=== PATIENT | female | born 1950 | race Caucasian/White ===

== ENCOUNTER 2021-07-30 07:21 | Inpatient (IN) | payer MEDICARE, MEDICAID ==
[~2021-07-30] VITALS: Ht 162.6 cm; Wt 83.6 kg
[2021-07-30] MEDS ORDERED: SODIUM CHLORIDE 0.9% 100 ML ONE (07:31)
[2021-07-30] MEDS ORDERED: IOHEXOL 350 MG/ML 150 ML VIAL ONE (07:31)
[2021-07-30 07:56] LABS: BASOPHILS % (AUTO) 1.1 % (0.0-2.0); EOSINOPHILS % (AUTO) 2.4 % (1.0-6.0); HEMATOCRIT 35.8 % (36-46); HEMOGLOBIN 12.2 g/dL (12.0-16.0); LYMPHOCYTES # (AUTO) 2.4 K/uL (1.0-4.8); LYMPHOCYTES % (AUTO) 26.2 % (22.0-44.0); MEAN CORPUSCULAR HEMOGLOBIN 31.6 pg (26.0-34.0); MEAN CORPUSCULAR HGB CONC 34.1 G/dL (31.0-37.0); MEAN CORPUSCULAR VOLUME 93 fL (80-100); MONOCYTES # (AUTO) 1.3 K/uL (0.1-1.0); NEUTROPHILS # (AUTO) 5.2 K/uL (1.8-7.7); NEUTROPHILS % (AUTO) 56.3 % (40.0-70.0); PLATELET COUNT (AUTO) 312 K/uL (150-450); RED BLOOD CELL COUNT(AUTO) 3.86 MIL/uL (4.00-5.20); RED CELL DISTRIBUTION WIDTH 13.2 % (11.5-14.5)
[2021-07-30 08:07] LABS: ANION GAP 10 mmol/L (8-16); CARBON DIOXIDE 27 mmol/L (22-29); CHLORIDE 103 mmol/L (98-107); CREATININE 0.56 mg/dL (0.60-1.30); GLUCOSE,RANDOM 90 mg/dL (70-110); POTASSIUM 3.6 mmol/L (3.5-5.1); SODIUM SERUM 140 mmol/L (136-145); UREA NITROGEN, BLOOD 10 mg/dL (7-18)
[2021-07-30 08:09] LABS: PROTHROMBIN TIME 10.9 SEC (9.4-11.6)
[2021-07-30 08:13] LABS: ALANINE AMINOTRANSFERASE 34 U/L (12-78); ALBUMIN 2.6 g/dL (3.4-5.0); ALKALINE PHOSPHATASE 103 U/L (46-116); ASPARTATE AMINOTRANSFERASE 23 U/L (15-37); BILIRUBIN,TOTAL 0.4 mg/dL (0.1-1.0); TOTAL PROTEIN, SERUM 6.8 g/dL (6.4-8.2)
[2021-07-30 08:15] LABS: CALCIUM, TOTAL 8.6 mg/dL (8.8-10.5); GLOMERULAR FILTR. RATE CALC > 60 mL/min (>60)
[2021-07-30] MEDS ORDERED: CLOPIDOGREL BISULFATE 75 MG TABLET PO ONE (08:45)
[2021-07-30] MEDS ORDERED: ASPIRIN 81 MG CHEWABLE TABLET PO ONE (08:45)
[2021-07-30 09:43] LABS: COVID AG,FIA SOURCE NASAL SWAB
[2021-07-30 15:40] VITALS: BP 136/76
[2021-07-30 16:05] VITALS: BP_SYST 154; BP_SYST 18; BP_DIAS 154; BP_DIAS 64
[2021-07-30] MEDS ORDERED: ENALAPRIL MALEATE 10 MG TABLET PO ONE (18:00)
[2021-07-30 20:19] VITALS: BP 124/65
[2021-07-30] MEDS: ATORVASTATIN CALCIUM 40 MG TABLET PO SCH (20:52)
[2021-07-30] MEDS: DOCUSATE SODIUM 250 MG CAPSULE PO SCH (20:52)
[2021-07-30] MEDS: ETHYL ALCOHOL 62% ANTISEPTIC NASAL INHALANT 0.6 ML AMPUL NASAL SCH (21:00)
[2021-07-31 00:10] VITALS: BP 114/55
[2021-07-31 04:55] VITALS: BP 121/69
[2021-07-31] MEDS: ACETAMINOPHEN 325 MG TABLET PO PRN (05:29)
[2021-07-31] MEDS: LEVOTHYROXINE SODIUM 88 MCG TABLET PO SCH (06:15)
[2021-07-31 07:13] VITALS: BP 101/47
[2021-07-31] MEDS: ENALAPRIL MALEATE 10 MG TABLET PO SCH (09:00)
[2021-07-31] MEDS: ASPIRIN 81 MG CHEWABLE TABLET PO SCH (09:25)
[2021-07-31] MEDS: ETHYL ALCOHOL 62% ANTISEPTIC NASAL INHALANT 0.6 ML AMPUL NASAL SCH ×2 (09:25→20:57)
[2021-07-31] MEDS: ENOXAPARIN SODIUM 40 MG/0.4 ML PF SYRINGE SQ SCH (09:25)
[2021-07-31] MEDS: DOCUSATE SODIUM 250 MG CAPSULE PO SCH ×2 (09:25→20:56)
[2021-07-31] MEDS ORDERED: LORazepam 2 MG/ML VIAL IVP ONE (11:00)
[2021-07-31 11:21] VITALS: BP 119/55
[2021-07-31 15:15] VITALS: BP 102/52
[2021-07-31 19:55] VITALS: BP 129/50
[2021-07-31] MEDS: ATORVASTATIN CALCIUM 40 MG TABLET PO SCH (20:56)
[2021-08-01 04:28] VITALS: BP 121/63
[2021-08-01] MEDS: LEVOTHYROXINE SODIUM 88 MCG TABLET PO SCH (05:52)
[2021-08-01 07:12] VITALS: BP 127/72
[2021-08-01 09:00] VITALS: BP 115/66
[2021-08-01] MEDS: ENALAPRIL MALEATE 10 MG TABLET PO SCH ×2 (09:00→12:10)
[2021-08-01] MEDS: DOCUSATE SODIUM 250 MG CAPSULE PO SCH (09:09)
[2021-08-01] MEDS: ENOXAPARIN SODIUM 40 MG/0.4 ML PF SYRINGE SQ SCH (09:09)
[2021-08-01] MEDS: ETHYL ALCOHOL 62% ANTISEPTIC NASAL INHALANT 0.6 ML AMPUL NASAL SCH (09:09)
[2021-08-01] MEDS: ASPIRIN 81 MG CHEWABLE TABLET PO SCH (09:09)
[2021-08-01 11:30] VITALS: BP 143/66
[2021-08-01 15:11] VITALS: BP 122/54
[2021-08-01] MEDS: ACETAMINOPHEN 325 MG TABLET PO PRN (18:24)
[2021-08-01 19:03] LABS: CHOL/HDL RATIO 2.9 (3.9-5.7)
== END 2021-08-01 18:45 | DRG 65 ==
LOC: EMS 07:22 → 5S 11:39
PROVIDERS: ADMIT Hospitalist; ATTEND Hospitalist
DX: I63.9 Cerebral infarction, unspecified (principal); I69.354 Hemiplegia and hemiparesis following cerebral infarction affecting left non-dominant side; E03.9 Hypothyroidism, unspecified; I10 Essential (primary) hypertension; Z20.822 Contact with and (suspected) exposure to COVID-19; R29.701 NIHSS score 1; Z91.013 Allergy to seafood
CPT/HCPCS: 70496; 70498; 70551; 71045; 80053; 80061; 84484; 85025; 85610; 85730; 86850; 86900; 86901; 87081; 92610; 93005; 97162; 97166; 97535; 99291; J1650; J7050; Q9967; 36415-L1; 36415-TC; 70450; 70450-TC

== ENCOUNTER 2021-08-01 16:06 | Inpatient (IN) | payer MEDICARE, MEDICAID ==
[~2021-08-01] VITALS: Ht 157.5 cm; Wt 78.0 kg
[2021-08-01 18:55] VITALS: BP 123/87
[2021-08-01] MEDS ORDERED: ACETAMINOPHEN 325 MG TABLET PO PRN (19:30)
[2021-08-01] MEDS: ACETAMINOPHEN 325 MG TABLET PO PRN (21:42)
[2021-08-01] MEDS: DOCUSATE SODIUM 100 MG CAPSULE PO SCH (21:42)
[2021-08-01] MEDS: ETHYL ALCOHOL 62% ANTISEPTIC NASAL INHALANT 0.6 ML AMPUL NASAL SCH (21:42)
[2021-08-01] MEDS: SENNA 187 MG TABLET PO SCH (21:42)
[2021-08-01] MEDS: MELATONIN 3 MG TABLET PO PRN (21:43)
[2021-08-01] MEDS: ATORVASTATIN CALCIUM 40 MG TABLET PO SCH (21:43)
[2021-08-02 01:50] VITALS: BP 122/58
[2021-08-02] MEDS: ACETAMINOPHEN 325 MG TABLET PO PRN (01:50)
[2021-08-02] MEDS: LEVOTHYROXINE SODIUM 88 MCG TABLET PO SCH (06:07)
[2021-08-02 08:03] LABS: BASOPHILS % (AUTO) 0.7 % (0.0-2.0); EOSINOPHILS % (AUTO) 3.2 % (1.0-6.0); HEMATOCRIT 35.9 % (36-46); HEMOGLOBIN 12.1 g/dL (12.0-16.0); LYMPHOCYTES # (AUTO) 2.2 K/uL (1.0-4.8); LYMPHOCYTES % (AUTO) 30.9 % (22.0-44.0); MEAN CORPUSCULAR HEMOGLOBIN 31.4 pg (26.0-34.0); MEAN CORPUSCULAR HGB CONC 33.6 G/dL (31.0-37.0); MEAN CORPUSCULAR VOLUME 93 fL (80-100); MONOCYTES # (AUTO) 0.9 K/uL (0.1-1.0); MONOCYTES % (AUTO) 12.2 % (2.0-9.0); NEUTROPHILS # (AUTO) 3.8 K/uL (1.8-7.7); PLATELET COUNT (AUTO) 327 K/uL (150-450); RED BLOOD CELL COUNT(AUTO) 3.84 MIL/uL (4.00-5.20); RED CELL DISTRIBUTION WIDTH 13.3 % (11.5-14.5)
[2021-08-02] MEDS: DOCUSATE SODIUM 100 MG CAPSULE PO SCH ×2 (08:05→20:22)
[2021-08-02] MEDS: ENALAPRIL MALEATE 10 MG TABLET PO SCH (08:05)
[2021-08-02] MEDS: ASPIRIN 81 MG CHEWABLE TABLET PO SCH (08:05)
[2021-08-02] MEDS: ENOXAPARIN SODIUM 40 MG/0.4 ML PF SYRINGE SQ SCH (08:06)
[2021-08-02] MEDS: ETHYL ALCOHOL 62% ANTISEPTIC NASAL INHALANT 0.6 ML AMPUL NASAL SCH ×2 (08:17→20:22)
[2021-08-02 08:22] LABS: ALANINE AMINOTRANSFERASE 24 U/L (12-78); ALBUMIN 2.4 g/dL (3.4-5.0); ALKALINE PHOSPHATASE 100 U/L (46-116); ANION GAP 8 mmol/L (8-16); ASPARTATE AMINOTRANSFERASE 22 U/L (15-37); BILIRUBIN,TOTAL 0.3 mg/dL (0.1-1.0); CALCIUM, TOTAL 8.6 mg/dL (8.8-10.5); CARBON DIOXIDE 26 mmol/L (22-29); CHLORIDE 106 mmol/L (98-107); CREATININE 0.54 mg/dL (0.60-1.30); GLOMERULAR FILTR. RATE CALC > 60 mL/min (>60); GLUCOSE,RANDOM 94 mg/dL (70-110); POTASSIUM 3.7 mmol/L (3.5-5.1); SODIUM SERUM 140 mmol/L (136-145); TOTAL PROTEIN, SERUM 6.6 g/dL (6.4-8.2); UREA NITROGEN, BLOOD 10 mg/dL (7-18)
[2021-08-02 09:29] VITALS: BP 114/51
[2021-08-02 16:02] VITALS: BP 136/65
[2021-08-02] MEDS: ESCITALOPRAM OXALATE 10 MG TABLET PO SCH (17:56)
[2021-08-02] MEDS: CLOPIDOGREL BISULFATE 75 MG TABLET PO SCH (17:56)
[2021-08-02] MEDS: SENNA 187 MG TABLET PO SCH (20:22)
[2021-08-02] MEDS: MELATONIN 3 MG TABLET PO PRN (20:22)
[2021-08-02] MEDS: ATORVASTATIN CALCIUM 40 MG TABLET PO SCH (20:22)
[2021-08-03] VITALS: BP 129/61
[2021-08-03] MEDS: LEVOTHYROXINE SODIUM 88 MCG TABLET PO SCH (06:05)
[2021-08-03] MEDS: ETHYL ALCOHOL 62% ANTISEPTIC NASAL INHALANT 0.6 ML AMPUL NASAL SCH ×2 (08:19→21:04)
[2021-08-03] MEDS: ENOXAPARIN SODIUM 40 MG/0.4 ML PF SYRINGE SQ SCH (08:19)
[2021-08-03] MEDS: ENALAPRIL MALEATE 10 MG TABLET PO SCH (08:20)
[2021-08-03] MEDS: ESCITALOPRAM OXALATE 10 MG TABLET PO SCH (08:20)
[2021-08-03] MEDS: ASPIRIN 81 MG CHEWABLE TABLET PO SCH (08:21)
[2021-08-03] MEDS: DOCUSATE SODIUM 100 MG CAPSULE PO SCH ×2 (08:21→21:04)
[2021-08-03] MEDS: CLOPIDOGREL BISULFATE 75 MG TABLET PO SCH (08:22)
[2021-08-03 13:48] VITALS: BP 141/81
[2021-08-03 19:30] VITALS: BP 143/60
[2021-08-03] MEDS: MELATONIN 3 MG TABLET PO PRN (21:04)
[2021-08-03] MEDS: ATORVASTATIN CALCIUM 40 MG TABLET PO SCH (21:04)
[2021-08-03] MEDS: SENNA 187 MG TABLET PO SCH (21:04)
[2021-08-03 23:03] VITALS: BP 130/57
[2021-08-03] MEDS: ACETAMINOPHEN 325 MG TABLET PO PRN (23:03)
[2021-08-04] MEDS: LEVOTHYROXINE SODIUM 88 MCG TABLET PO SCH (05:28)
[2021-08-04] MEDS: ASPIRIN 81 MG CHEWABLE TABLET PO SCH (08:15)
[2021-08-04] MEDS: ENOXAPARIN SODIUM 40 MG/0.4 ML PF SYRINGE SQ SCH (08:15)
[2021-08-04] MEDS: DOCUSATE SODIUM 100 MG CAPSULE PO SCH ×2 (08:15→20:17)
[2021-08-04] MEDS: ETHYL ALCOHOL 62% ANTISEPTIC NASAL INHALANT 0.6 ML AMPUL NASAL SCH ×2 (08:16→20:16)
[2021-08-04] MEDS: ESCITALOPRAM OXALATE 10 MG TABLET PO SCH (08:16)
[2021-08-04] MEDS: CLOPIDOGREL BISULFATE 75 MG TABLET PO SCH (08:16)
[2021-08-04] MEDS: ENALAPRIL MALEATE 10 MG TABLET PO SCH (08:16)
[2021-08-04 09:00] VITALS: BP 131/72
[2021-08-04 16:30] VITALS: BP 138/71
[2021-08-04] MEDS: ATORVASTATIN CALCIUM 40 MG TABLET PO SCH (20:17)
[2021-08-04] MEDS: SENNA 187 MG TABLET PO SCH (20:17)
[2021-08-04] MEDS: MELATONIN 3 MG TABLET PO PRN (20:17)
[2021-08-05 00:17] VITALS: BP 150/77
[2021-08-05] MEDS: LEVOTHYROXINE SODIUM 88 MCG TABLET PO SCH (05:59)
[2021-08-05] MEDS: ASPIRIN 81 MG CHEWABLE TABLET PO SCH (07:43)
[2021-08-05] MEDS: ETHYL ALCOHOL 62% ANTISEPTIC NASAL INHALANT 0.6 ML AMPUL NASAL SCH ×2 (07:43→20:04)
[2021-08-05] MEDS: DOCUSATE SODIUM 100 MG CAPSULE PO SCH ×2 (07:43→20:04)
[2021-08-05] MEDS: CLOPIDOGREL BISULFATE 75 MG TABLET PO SCH (07:44)
[2021-08-05] MEDS: ENALAPRIL MALEATE 10 MG TABLET PO SCH (07:44)
[2021-08-05] MEDS: ENOXAPARIN SODIUM 40 MG/0.4 ML PF SYRINGE SQ SCH (07:44)
[2021-08-05] MEDS: ESCITALOPRAM OXALATE 10 MG TABLET PO SCH (07:44)
[2021-08-05 09:00] VITALS: BP 157/53
[2021-08-05 09:40] VITALS: BP 145/77
[2021-08-05] MEDS ORDERED: ACET325T51 PO (12:24)
[2021-08-05] MEDS ORDERED: ATOR40TA71 PO (12:24)
[2021-08-05] MEDS ORDERED: CLOP75TA60 PO (12:24)
[2021-08-05] MEDS ORDERED: DOCU-119 PO (12:24)
[2021-08-05] MEDS ORDERED: ASPI81 PO (12:24)
[2021-08-05] MEDS ORDERED: LEVO88TA7 PO (12:25)
[2021-08-05] MEDS ORDERED: ENAL-89 PO (12:25)
[2021-08-05] MEDS ORDERED: SENN-187 PO (12:25)
[2021-08-05] MEDS ORDERED: ESCI10 PO (12:25)
[2021-08-05 16:30] VITALS: BP 136/72
[2021-08-05] MEDS: SENNA 187 MG TABLET PO SCH (20:04)
[2021-08-05] MEDS: ATORVASTATIN CALCIUM 40 MG TABLET PO SCH (20:04)
[2021-08-06 04:00] VITALS: BP 142/51
[2021-08-06] MEDS: LEVOTHYROXINE SODIUM 88 MCG TABLET PO SCH (05:50)
[2021-08-06 08:00] VITALS: BP 136/82
[2021-08-06] MEDS: ASPIRIN 81 MG CHEWABLE TABLET PO SCH (08:27)
[2021-08-06] MEDS: DOCUSATE SODIUM 100 MG CAPSULE PO SCH (08:27)
[2021-08-06] MEDS: ENOXAPARIN SODIUM 40 MG/0.4 ML PF SYRINGE SQ SCH (08:27)
[2021-08-06] MEDS: ETHYL ALCOHOL 62% ANTISEPTIC NASAL INHALANT 0.6 ML AMPUL NASAL SCH (08:27)
[2021-08-06] MEDS: ENALAPRIL MALEATE 10 MG TABLET PO SCH (08:28)
[2021-08-06] MEDS: ESCITALOPRAM OXALATE 10 MG TABLET PO SCH (08:28)
[2021-08-06] MEDS: CLOPIDOGREL BISULFATE 75 MG TABLET PO SCH (08:28)
== END 2021-08-06 12:40 | disposition home or self-care (01) | DRG 56 ==
LOC: 2WR 18:50
PROVIDERS: ADMIT Physical Medicine & Rehabilitation; ATTEND Physical Medicine & Rehabilitation
DX: G81.94 Hemiplegia, unspecified affecting left nondominant side (principal); I63.9 Cerebral infarction, unspecified; I42.1 Obstructive hypertrophic cardiomyopathy; E46 Unspecified protein-calorie malnutrition; I10 Essential (primary) hypertension; G31.84 Mild cognitive impairment of uncertain or unknown etiology; F41.9 Anxiety disorder, unspecified; E78.5 Hyperlipidemia, unspecified; E03.9 Hypothyroidism, unspecified; Z60.2 Problems related to living alone; F43.10 Post-traumatic stress disorder, unspecified; E66.9 Obesity, unspecified; Z79.01 Long term (current) use of anticoagulants; Z79.899 Other long term (current) drug therapy; Z91.013 Allergy to seafood; Z68.31 Body mass index [BMI] 31.0-31.9, adult
CPT/HCPCS: 80053; 85025; 87081; 92507; 92523; 97110; 97112; 97116; 97163; 97166; 97530; 97535; 99366; J1650

== ENCOUNTER 2022-06-23 12:03 | Inpatient (IN) | payer MEDICARE, MEDICAID ==
[~2022-06-23] VITALS: Ht 154.9 cm; Wt 79.5 kg
[~2022-06-23 12:03] MED LIST: ACET325T51 PO; ASPI81 PO; ATOR40TA71 PO; CLOP75TA60 PO; DOCU-119 PO; ENAL-89 PO; ESCI10 PO; LEVO88TA7 PO; SENN-187 PO
[2022-06-23 12:41] LABS: BASOPHILS % (AUTO) 0.6 % (0.0-2.0); EOSINOPHILS % (AUTO) 1.7 % (1.0-6.0); HEMATOCRIT 38.7 % (36-46); HEMOGLOBIN 12.3 g/dL (12.0-16.0); LYMPHOCYTES # (AUTO) 3.2 K/uL (1.0-4.8); LYMPHOCYTES % (AUTO) 23.5 % (22.0-44.0); MEAN CORPUSCULAR HEMOGLOBIN 29.7 pg (26.0-34.0); MEAN CORPUSCULAR HGB CONC 31.7 G/dL (31.0-37.0); MEAN CORPUSCULAR VOLUME 94 fL (80-100); MONOCYTES # (AUTO) 1.6 K/uL (0.1-1.0); MONOCYTES % (AUTO) 11.9 % (2.0-9.0); NEUTROPHILS # (AUTO) 8.4 K/uL (1.8-7.7); NEUTROPHILS % (AUTO) 62.3 % (40.0-70.0); PLATELET COUNT (AUTO) 334 K/uL (150-450); RED BLOOD CELL COUNT(AUTO) 4.14 MIL/uL (4.00-5.20)
[2022-06-23] MEDS ORDERED: ONDANSETRON HCL 4 MG/2 ML VIAL IVP PRN (12:45)
[2022-06-23] MEDS ORDERED: ACETAMINOPHEN 325 MG TABLET PO PRN (12:45)
[2022-06-23 12:47] LABS: ANION GAP 6 mmol/L (8-16); CARBON DIOXIDE 29 mmol/L (22-29); CHLORIDE 106 mmol/L (98-107); CREATININE 0.67 mg/dL (0.60-1.30); GLOMERULAR FILTR. RATE CALC > 60 mL/min (>60); GLUCOSE,RANDOM 94 mg/dL (70-110); POTASSIUM 3.8 mmol/L (3.5-5.1); SODIUM SERUM 141 mmol/L (136-145); UREA NITROGEN, BLOOD 18 mg/dL (7-18)
[2022-06-23 12:51] LABS: PROTHROMBIN TIME 10.4 SEC (9.4-11.6)
[2022-06-23] MEDS ORDERED: SODIUM CHLORIDE 0.9% 500 ML IV ONE (13:00)
[2022-06-23 13:09] LABS: ALANINE AMINOTRANSFERASE 22 U/L (12-78); ALKALINE PHOSPHATASE 154 U/L (46-116); ASPARTATE AMINOTRANSFERASE 22 U/L (15-37); BILIRUBIN,TOTAL 0.2 mg/dL (0.1-1.0); THYROID STIMULATING HORMONE 0.97 uIU/mL (0.36-3.74); TOTAL PROTEIN, SERUM 6.9 g/dL (6.4-8.2)
[2022-06-23] MEDS ORDERED: IOHEXOL 350 MG/ML 100 ML VIAL ONE (13:39)
[2022-06-23] MEDS ORDERED: SODIUM CHLORIDE 0.9% 100 ML ONE (13:40)
[2022-06-23 14:06] LABS: COVID AG,FIA SOURCE NASAL SWAB
[2022-06-23] MEDS: HEPARIN SODIUM,PORCINE 5,000 UNITS/ML VIAL SQ SCH ×2 (16:33→23:52)
[2022-06-23 17:05] VITALS: BP 117/64
[2022-06-23 18:47] LABS: CHOL/HDL RATIO 2.7 (3.9-5.7); CHOLESTEROL 175 mg/dL (131-200); HDL CHOLESTEROL 66 mg/dL (40-60); LDL CHOL (CALC.) 90 mg/dL (0-130); TRIGLYCERIDES 96 mg/dL (15-150)
[2022-06-23 20:00] VITALS: BP 98/63
[2022-06-23] MEDS: DOCUSATE SODIUM 100 MG CAPSULE PO SCH (20:12)
[2022-06-24] VITALS: BP 114/68
[2022-06-24 04:00] VITALS: BP 130/61
[2022-06-24 07:39] VITALS: BP_SYST 124; BP_SYST 138; BP_DIAS 58; BP_DIAS 66
[2022-06-24] MEDS: DOCUSATE SODIUM 100 MG CAPSULE PO SCH (08:44)
[2022-06-24] MEDS: HEPARIN SODIUM,PORCINE 5,000 UNITS/ML VIAL SQ SCH ×2 (08:44→16:00)
[2022-06-24] MEDS ORDERED: ATORVASTATIN CALCIUM 40 MG TABLET PO SCH (09:00)
[2022-06-24] MEDS ORDERED: LISINOPRIL 10 MG TABLET PO SCH (09:00)
[2022-06-24] MEDS ORDERED: ASPIRIN 81 MG CHEWABLE TABLET PO SCH (09:00)
[2022-06-24] MEDS ORDERED: FAMOTIDINE 20 MG TABLET PO SCH (09:00)
[2022-06-24] MEDS ORDERED: CLOPIDOGREL BISULFATE 75 MG TABLET PO SCH (09:00)
[2022-06-24] MEDS ORDERED: LEVO50 PO (10:55)
[2022-06-24 11:52] VITALS: BP 130/60
[2022-06-24 12:15] LABS: BASOPHILS % (AUTO) 0.6 % (0.0-2.0); EOSINOPHILS % (AUTO) 3.1 % (1.0-6.0); HEMATOCRIT 39.4 % (36-46); HEMOGLOBIN 12.6 g/dL (12.0-16.0); LYMPHOCYTES # (AUTO) 3.4 K/uL (1.0-4.8); LYMPHOCYTES % (AUTO) 33.8 % (22.0-44.0); MEAN CORPUSCULAR HGB CONC 31.9 G/dL (31.0-37.0); MEAN CORPUSCULAR VOLUME 94 fL (80-100); MONOCYTES # (AUTO) 1.1 K/uL (0.1-1.0); MONOCYTES % (AUTO) 10.9 % (2.0-9.0); NEUTROPHILS # (AUTO) 5.3 K/uL (1.8-7.7); NEUTROPHILS % (AUTO) 51.6 % (40.0-70.0); PLATELET COUNT (AUTO) 325 K/uL (150-450); RED BLOOD CELL COUNT(AUTO) 4.18 MIL/uL (4.00-5.20); RED CELL DISTRIBUTION WIDTH 13.9 % (11.5-14.5)
[2022-06-24 15:44] LABS: APPEARANCE,URINE CLEAR (CLEAR); BILIRUBIN,URINE NEGATIVE (NEGATIVE); GLUCOSE, URINE (UA) NEGATIVE (NEGATIVE); KETONES,URINE NEGATIVE (NEGATIVE); LEUKOCYTE ESTERASE ,URINE NEGATIVE (NEGATIVE); NITRATE,URINE NEGATIVE (NEGATIVE); OCCULT BLOOD,URINE SMALL (NEGATIVE); PH,URINE 5.5 (5.0-8.0); PROTEIN,URINE NEGATIVE (NEGATIVE); SPECIFIC GRAVITIY, URINE 1.013 (1.003-1.030); UROBILINOGEN,URINE <=1.0 mg/dL (<=1.0)
[2022-06-24 15:50] LABS: AMPHET/METH SCREEN,URINE NEGATIVE (NEGATIVE); BARBITURATE SCREEN, URINE NEGATIVE (NEGATIVE); BENZODIAZEPINES SCREEN,URINE NEGATIVE (NEGATIVE); CANNABINOID SCREEN,URINE NEGATIVE (NEGATIVE); COCAINE SCREEN,URINE NEGATIVE (NEGATIVE); METHADONE SCREEN, URINE NEGATIVE (NEGATIVE); OPIATE SCREEN,URINE NEGATIVE (NEGATIVE); PHENCYCLIDINE SCREEN,URINE NEGATIVE (NEGATIVE)
[2022-06-24 15:54] LABS: BACTERIA,URINE Rare /HPF (None Seen); SQUAMOUS EPITHELIAL CELL,UR Few /LPF (None Seen); WBC,URINE 0-2 /HPF (0-5)
[2022-06-24 16:00] VITALS: BP 118/61
[2022-06-25] MEDS ORDERED: LEVOTHYROXINE SODIUM 50 MCG TABLET PO SCH (06:30)
== END 2022-06-24 17:35 | disposition home or self-care (01) | DRG 69 ==
LOC: EMS 12:04 → 5S 15:21 → EMS 15:53
PROVIDERS: ADMIT Internal Medicine; ATTEND Internal Medicine
DX: G45.9 Transient cerebral ischemic attack, unspecified (principal); I69.354 Hemiplegia and hemiparesis following cerebral infarction affecting left non-dominant side; E03.9 Hypothyroidism, unspecified; I10 Essential (primary) hypertension; E66.9 Obesity, unspecified; Z79.82 Long term (current) use of aspirin; Z88.8 Allergy status to other drugs, medicaments and biological substances; Z79.899 Other long term (current) drug therapy; Z79.02 Long term (current) use of antithrombotics/antiplatelets; Z68.33 Body mass index [BMI] 33.0-33.9, adult; I66.01 Occlusion and stenosis of right middle cerebral artery
CPT/HCPCS: 70496; 70498; 71045; 80053; 80061; 80307; 81001; 82948; 84443; 84484; 85025; 85610; 85730; 86850; 86900; 86901; 92526; 93005; 93306; 93880; 97116; 97162; 97165; 97535; 99291; J1644; J7040; J7050; Q9967; 36415-L1; 36415-TC; 70450; 70450-TC

== ENCOUNTER 2022-06-27 13:30 | Emergency (ER) | payer MEDICARE, MEDICAID ==
[~2022-06-27] VITALS: Ht 165.1 cm; Wt 81.8 kg
[~2022-06-27 13:30] MED LIST changes: -ACET325T51 PO; +LEVO50 PO; -LEVO88TA7 PO; -SENN-187 PO
[2022-06-27 13:33] VITALS: BP 139/63
== END 2022-06-27 18:00 | disposition left against medical advice (07) ==
LOC: EMS 14:03
DX: M25.562 Pain in left knee (principal); M25.561 Pain in right knee; M54.2 Cervicalgia; R51.9 Headache, unspecified; I10 Essential (primary) hypertension; E03.9 Hypothyroidism, unspecified; Z91.013 Allergy to seafood
CPT/HCPCS: 70450; 72125; 99284